=== PATIENT | female | born 1955 ===

== ENCOUNTER 2018-02-05 07:05 | Day surgery (SDC) | payer OTHER ==
[2018-02-05] MEDS ORDERED: Lactated Ringer's 500 ML IV ONE (07:33)
[2018-02-05] MEDS ORDERED: Midazolam 2 MG/2 ML VIAL ONE (08:00)
[2018-02-05] MEDS ORDERED: Propofol 10 mg/ml Inj (20 ML) ONE ×2 (08:01→09:19)
[2018-02-05] MEDS ORDERED: Lidocaine PF 2% (5 ml) Inj (For Cardiac Arrhy) IV ONE (08:01)
[2018-02-05 09:36] VITALS: TEMP 96.9
[2018-02-05 10:00] VITALS: BP 104/68; PULSE 88; RESP 14; O2SAT 99
== END 2018-02-05 10:21 | disposition home or self-care (01) ==
LOC: H.ENDO 07:05
PROVIDERS: ATTEND Internal Medicine Gastroenterology
DX: D12.5 Benign neoplasm of sigmoid colon (principal); K64.8 Other hemorrhoids; R19.5 Other fecal abnormalities
CPT/HCPCS: 45385; 88305; J2250; J2704; J7120

== ENCOUNTER 2018-05-14 07:25 | Day surgery (SDC) | payer OTHER ==
[2018-05-14] MEDS ORDERED: Lactated Ringer's 1,000 ML IV ONE (08:25)
[2018-05-14 08:47] VITALS: BMI 23.8
[2018-05-14] MEDS ORDERED: Propofol 10 mg/ml Inj (20 ML) ONE (09:19)
[2018-05-14 09:43] VITALS: TEMP 98
[2018-05-14 09:47] VITALS: BP 105/62; PULSE 68; RESP 19; O2SAT 100
== END 2018-05-14 09:54 | disposition home or self-care (01) ==
LOC: H.ENDO 07:25
PROVIDERS: ATTEND Internal Medicine Gastroenterology
DX: R12 Heartburn (principal); K21.0 Gastro-esophageal reflux disease with esophagitis; K44.9 Diaphragmatic hernia without obstruction or gangrene; K31.89 Other diseases of stomach and duodenum; R10.13 Epigastric pain; K29.70 Gastritis, unspecified, without bleeding; F17.200 Nicotine dependence, unspecified, uncomplicated; B96.81 Helicobacter pylori [H. pylori] as the cause of diseases classified elsewhere
CPT/HCPCS: 43239; 87081; 87205; 88305; J2001; J2704; J7120